=== PATIENT | male | born 1945 | race Caucasian/White ===

== ENCOUNTER 2023-01-09 23:58 | Inpatient (IN) | payer MEDICARE ==
[2023-01-10 00:55] LABS: Hemoglobin 10.2 g/dL (14.0-18.0); Mean Corpuscular HGB CONC 33.2 g/dL (32.0-36.0); Mean Corpuscular Hemoglobin 29.6 pg (27.0-31.0); Mean Platelet Volume 8.9 fL (7.4-10.4); Platelet Count 152 10x3/uL (130-400); RBC Distribution Width 15.3 % (11.5-14.5); Red Blood Cell (RBC) Count 3.44 mill/uL (4.70-6.10)
[2023-01-10 01:14] LABS: ALT (SGPT) 1138 U/L (8-55); AST (SGOT) 910 U/L (5-34); Albumin 3.2 g/dL (3.4-4.8); Alkaline Phosphatase 117 U/L (40-110); Anion Gap 17 mmol/L (10-20); BUN (Urea Nitrogen) 75 mg/dL (8.4-25.7); Bilirubin, Total 1.7 mg/dL (0.2-1.2); Calc. Creatinine Clearance 0 mL/min (70-130); Calcium 8.5 mg/dL (7.8-10.44); Carbon Dioxide 23 mmol/L (23-31); Chloride 100 mmol/L (98-107); Estimated GFR 16; Globulin 3.2 g/dL (2.4-3.5); Potassium 3.5 mmol/L (3.5-5.1); Protein, Total 6.4 g/dL (5.8-8.1); Sodium 136 mmol/L (136-145)
[2023-01-10 01:19] LABS: Glucose 53 mg/dL (83-110)
[2023-01-10 01:20] LABS: Acetaminophen Less than 10.0 mcg/mL (10.0-30.0); Alcohol Less than 10 mg/dL (Less than 10); CK (CPK) 186 U/L (30-200); Magnesium 2.6 mg/dL (1.6-2.6); Salicylate Less than 8.0 mg/dL (15.0-30.0)
[2023-01-10 01:22] LABS: Band 1 % (5-11); Eosinophils 1 % (0-10); Lymphocytes 20 % (21-51); MDiff Complete? YES; Monocytes 15 % (0-10); Neutrophil 63 % (42-75)
[2023-01-10] MEDS ORDERED: Aspirin 300 MG Suppository ONE (01:23)
[2023-01-10 01:39] LABS: CKMB 4.1 ng/mL (0-6.6)
[2023-01-10] MEDS ORDERED: Vancomycin 1 GM/200 ML (FROZEN) BAG ONE (01:42)
[2023-01-10] MEDS ORDERED: Piperacillin/Tazobactam 3.375 GM VIAL ONE (01:42)
[2023-01-10] MEDS ORDERED: Aspirin 300 MG Suppository PR SCH (02:24)
[2023-01-10] MEDS ORDERED: Ondansetron ODT 4 MG TAB PO PRN (02:28)
[2023-01-10] MEDS ORDERED: HumaLOG 300 UNITS/3 ML VIAL SC PRN ×2 (02:28)
[2023-01-10] MEDS ORDERED: Acetaminophen 325 MG TAB PO PRN (02:28)
[2023-01-10] MEDS ORDERED: Dextrose 50% Abboject 50 ML SYRINGE SLOW IVP PRN (02:28)
[2023-01-10] MEDS ORDERED: Dextrose 5% in Water 1,000 ML IV PRN (02:28)
[2023-01-10] MEDS ORDERED: Ondansetron PF 4 MG/2 ML Vial IVP PRN (02:28)
[2023-01-10] MEDS ORDERED: Acetaminophen 650 MG Suppository PR PRN (02:28)
[2023-01-10] MEDS ORDERED: Heparin 10,000 UNITS/ 10 ML VIAL SLOW IVP SCH (02:30)
[2023-01-10] MEDS ORDERED: Heparin 25,000 units/D5W 500 ML IVPB SCH (02:30)
[2023-01-10 02:37] LABS: HBCM Index 0.07 S/CO (0-0.79); HBSAg Index 0.24 S/CO (0-0.99); Hep A IgM AB Non-Reactive (NonReactive); Hep A IgM S/CO 0.15 S/CO (0-0.79); Hep B Surf Ag Non-Reactive S/CO (NonReactive); Hep C IgG Ab Non-Reactive (NonReactive); Hep C Index 0.08 S/CO (0-0.79); Hepatitis B Core IgM Abs Non-Reactive (NonReactive); Thyroid Stimulating Hormone 2.1639 uIU/mL (0.35-4.94)
[2023-01-10] MEDS ORDERED: Furosemide 40 MG/4 ML VIAL ONE (03:35)
[2023-01-10 04:16] LABS: #Monocytes 0.8 thou/uL (0.11-0.59); #Neutrophils 3.6 thou/uL (1.40-6.50); %Basophils 0.5 % (0.0-1.0); %Eosinophils 0.4 % (0.0-10.0); %Lymphocytes 17.6 % (21.0-51.0); %Monocytes 14.5 % (0.0-10.0); %Neutrophils 67.1 % (42.0-75.0); Hemoglobin 10.4 g/dL (14.0-18.0); Mean Corpuscular HGB CONC 31.9 g/dL (32.0-36.0); Mean Corpuscular Hemoglobin 28.3 pg (27.0-31.0); Mean Corpuscular Volume 88.6 fl (78.0-98.0); Mean Platelet Volume 8.6 fL (7.4-10.4); Platelet Count 148 10x3/uL (130-400); RBC Distribution Width 15.2 % (11.5-14.5); Red Blood Cell (RBC) Count 3.68 mill/uL (4.70-6.10); White Blood Cell (WBC) Count 5.4 10x3/uL (4.8-10.8)
[2023-01-10] MEDS ORDERED: Heparin 25,000 units/D5W 500 ML ONE (04:27)
[2023-01-10] MEDS ORDERED: Morphine 4 MG/ML VIAL SLOW IVP PRN (04:31)
[2023-01-10 04:38] LABS: Bacteria/HPF 1+ HPF (None Seen); Bilirubin Negative (Negative); Blood, Urine Negative (Negative); Clarity Clear (Clear); Glucose, Urine (Dipstick) 300 mg/dL (Negative); Ketone, Urine Negative (Negative); Leukocyte Negative Leu/uL (Negative); Nitrite Negative (Negative); Protein, Urine (Dipstick) 50 mg/dL (Neg-Trace); RBC/HPF 0-3 HPF (0-3); Specific Gravity, Urine 1.016 (1.002-1.036); Squamous Epithelial None Seen HPF (0-3); Urobilinogen Normal mg/dL (Less than 2); WBC/HPF 0-3 HPF (0-3)
[2023-01-10 04:43] LABS: Anion Gap 16 mmol/L (10-20); BUN (Urea Nitrogen) 75 mg/dL (8.4-25.7); Calc. Creatinine Clearance 0 mL/min (70-130); Calcium 8.5 mg/dL (7.8-10.44); Carbon Dioxide 25 mmol/L (23-31); Chloride 98 mmol/L (98-107); Estimated GFR 16; Glucose 103 mg/dL (83-110); Magnesium 2.6 mg/dL (1.6-2.6); Potassium 3.6 mmol/L (3.5-5.1); Sodium 135 mmol/L (136-145)
[2023-01-10] MEDS ORDERED: Morphine 4 MG/ML VIAL ONE (04:49)
[2023-01-10 04:54] LABS: Critical Call Chem Troponin I RESULT DECREASING
[2023-01-10 05:11] VITALS: BMI 30.1
[2023-01-10 05:56] LABS: SARS-CoV-2 NAA Rapid Test Not Detected (NotDetected)
[2023-01-10] MEDS: Aspirin 81 mg Enteric Coated Tablet PO SCH (07:20)
[2023-01-10] MEDS: Furosemide 40 MG/4 ML VIAL SLOW IVP SCH ×2 (07:36→17:56)
[2023-01-10 09:32] LABS: Amphetamine Not Detected (NotDetected); Barbiturates Screen Not Detected (NotDetected); Benzodiazepine Screen Not Detected (NotDetected); Cocaine Metabolite Screen Not Detected (NotDetected); Methadone Not Detected (NotDetected); Methamphetamine Not Detected (NotDetected); Opiate Screen Not Detected (NotDetected); Oxycodone Screen Not Detected (NotDetected); Phencyclidine (PCP) Not Detected (NotDetected); THC/Cannabinoid Screen Not Detected (NotDetected); Tricyclic Screen Not Detected (NotDetected)
[2023-01-10 09:46] LABS: PTT Greater than 250.0 sec (22.9-36.1)
[2023-01-10 10:17] LABS: INR-International Normal Ratio 2.2; Prothrombin Time 25.3 sec (12.0-14.7)
[2023-01-10 10:26] LABS: ALT (SGPT) 1005 U/L (8-55); AST (SGOT) 720 U/L (5-34); Albumin 3.4 g/dL (3.4-4.8); Alkaline Phosphatase 115 U/L (40-110); Bilirubin, Direct 1.2 mg/dL (0.1-0.3); Protein, Total 6.5 g/dL (5.8-8.1)
[2023-01-10] MEDS ORDERED: Lorazepam 2 MG/ML VIAL SLOW IVP SCH (10:30)
[2023-01-10] MEDS: Piperacillin/Tazobactam 3.375 GM in Sodium Chloride 0.9% 100 ML IVPB SCH (15:50)
[2023-01-10] MEDS ORDERED: Albumin 25% 25 GM/100 ML BOT IVPB SCH (16:00)
[2023-01-10] MEDS: rOPINIRole HCl 0.5 MG TAB PO SCH (20:20)
[2023-01-10] MEDS ORDERED: Non-Formulary Item 1 EACH (Atorvastatin Calcium [Atorvastatin Calcium] 80 MG Tablet) PO SCH (21:00)
[2023-01-10] MEDS: Melatonin 3 MG TAB PO PRN (22:38)
[2023-01-11] MEDS: Piperacillin/Tazobactam 3.375 GM in Sodium Chloride 0.9% 100 ML IVPB SCH ×2 (01:59→14:55)
[2023-01-11 06:14] LABS: #Eosinphils 0.2 thou/uL (0.0-0.7); #Lymphocytes 1.1 thou/uL (1.20-3.40); #Monocytes 0.7 thou/uL (0.11-0.59); #Neutrophils 3.9 thou/uL (1.40-6.50); %Basophils 0.6 % (0.0-1.0); %Eosinophils 3.9 % (0.0-10.0); %Lymphocytes 18.7 % (21.0-51.0); %Neutrophils 64.8 % (42.0-75.0); Hemoglobin 10.3 g/dL (14.0-18.0); Mean Corpuscular HGB CONC 32.1 g/dL (32.0-36.0); Mean Corpuscular Hemoglobin 28.9 pg (27.0-31.0); Mean Platelet Volume 8.6 fL (7.4-10.4); Platelet Count 184 10x3/uL (130-400); RBC Distribution Width 15.2 % (11.5-14.5); Red Blood Cell (RBC) Count 3.56 mill/uL (4.70-6.10)
[2023-01-11 06:32] LABS: INR-International Normal Ratio 1.7; Prothrombin Time 20.5 sec (12.0-14.7)
[2023-01-11 06:34] LABS: PTT 93.4 sec (22.9-36.1)
[2023-01-11 06:35] LABS: ALT (SGPT) 788 U/L (8-55); AST (SGOT) 422 U/L (5-34); Albumin 3.6 g/dL (3.4-4.8); Alkaline Phosphatase 102 U/L (40-110); Anion Gap 19 mmol/L (10-20); BUN (Urea Nitrogen) 64 mg/dL (8.4-25.7); Bilirubin, Total 2.5 mg/dL (0.2-1.2); CK (CPK) 152 U/L (30-200); Calc. Creatinine Clearance 22 mL/min (70-130); Calcium 8.9 mg/dL (7.8-10.44); Carbon Dioxide 24 mmol/L (23-31); Chloride 97 mmol/L (98-107); Estimated GFR 17; Globulin 3.2 g/dL (2.4-3.5); Glucose 161 mg/dL (83-110); Magnesium 2.4 mg/dL (1.6-2.6); Potassium 3.8 mmol/L (3.5-5.1); Protein, Total 6.8 g/dL (5.8-8.1); Sodium 136 mmol/L (136-145)
[2023-01-11 07:03] LABS: Creatinine, Urine 58.67 mg/dL (63-166); Protein, Urine Random Quant 38 mg/dL (1-14); Sodium, Urine Less than 20 mmol/L (Not Available); Urea Nitrogen, Random Urine 544 mg/dl
[2023-01-11] MEDS: Aspirin 81 mg Enteric Coated Tablet PO SCH (08:33)
[2023-01-11] MEDS ORDERED: Finasteride 5 MG TAB PO SCH (09:00)
[2023-01-11] MEDS ORDERED: Tamsulosin HCl 0.4 MG CAP PO SCH (09:00)
[2023-01-11] MEDS ORDERED: Furosemide 40 MG/4 ML VIAL SLOW IVP SCH ×4 (15:00→22:00)
[2023-01-11] MEDS: Metoprolol Tartrate 25 MG TAB PO SCH (20:40)
[2023-01-11] MEDS: rOPINIRole HCl 0.5 MG TAB PO SCH (20:40)
[2023-01-11] MEDS: Melatonin 3 MG TAB PO PRN (20:42)
[2023-01-11] MEDS: Furosemide 40 MG/4 ML VIAL SLOW IVP SCH (22:13)
[2023-01-12] MEDS: Piperacillin/Tazobactam 3.375 GM in Sodium Chloride 0.9% 100 ML IVPB SCH ×2 (02:45→14:00)
[2023-01-12] MEDS: Furosemide 40 MG/4 ML VIAL SLOW IVP SCH ×2 (05:02→14:00)
[2023-01-12 05:29] LABS: INR-International Normal Ratio 1.6
[2023-01-12 05:30] LABS: PTT 39.9 sec (22.9-36.1)
[2023-01-12 05:32] LABS: Hemoglobin 10.4 g/dL (14.0-18.0); Mean Corpuscular Hemoglobin 30.3 pg (27.0-31.0); Mean Corpuscular Volume 89.1 fl (78.0-98.0); Mean Platelet Volume 8.3 fL (7.4-10.4); Platelet Count 180 10x3/uL (130-400); RBC Distribution Width 15.5 % (11.5-14.5); Red Blood Cell (RBC) Count 3.44 mill/uL (4.70-6.10); White Blood Cell (WBC) Count 6.1 10x3/uL (4.8-10.8)
[2023-01-12 05:44] LABS: ALT (SGPT) 570 U/L (8-55); AST (SGOT) 220 U/L (5-34); Albumin 3.7 g/dL (3.4-4.8); Alkaline Phosphatase 92 U/L (40-110); Anion Gap 19 mmol/L (10-20); BUN (Urea Nitrogen) 60 mg/dL (8.4-25.7); Bilirubin, Total 2.4 mg/dL (0.2-1.2); Calc. Creatinine Clearance 24 mL/min (70-130); Calcium 8.9 mg/dL (7.8-10.44); Carbon Dioxide 26 mmol/L (23-31); Chloride 98 mmol/L (98-107); Estimated GFR 19; Globulin 3.2 g/dL (2.4-3.5); Glucose 157 mg/dL (83-110); Magnesium 2.2 mg/dL (1.6-2.6); Potassium 3.6 mmol/L (3.5-5.1); Protein, Total 6.9 g/dL (5.8-8.1); Sodium 139 mmol/L (136-145)
[2023-01-12 05:58] LABS: Eosinophils 3 % (0-10); Lymphocytes 20 % (21-51); MDiff Complete? YES; Monocytes 11 % (0-10); Neutrophil 66 % (42-75)
[2023-01-12] MEDS ORDERED: Empagliflozin 25 MG TAB PO SCH ×2 (09:00)
[2023-01-12] MEDS: Metoprolol Tartrate 25 MG TAB PO SCH (09:19)
[2023-01-12] MEDS: Aspirin 81 mg Enteric Coated Tablet PO SCH (09:19)
[2023-01-12 12:03] VITALS: BP 120/75; TEMP 98.4
== END 2023-01-12 16:21 | disposition home or self-care (01) | DRG 280 ==
LOC: ERS 23:58 → ERHOLD 01-10 02:10 → IMCU/EMU 01-10 08:20 → 2NO 01-11 17:11
PROVIDERS: ADMIT Student in an Organized Health Care Education/Training Program; ATTEND Family Medicine
DX: I13.0 Hypertensive heart and chronic kidney disease with heart failure and stage 1 through stage 4 chronic kidney disease, or unspecified chronic kidney disease (principal); G93.41 Metabolic encephalopathy; I21.A1 Myocardial infarction type 2; J96.01 Acute respiratory failure with hypoxia; K72.00 Acute and subacute hepatic failure without coma; I50.43 Acute on chronic combined systolic (congestive) and diastolic (congestive) heart failure; N17.9 Acute kidney failure, unspecified; I25.10 Atherosclerotic heart disease of native coronary artery without angina pectoris; E78.5 Hyperlipidemia, unspecified; E11.649 Type 2 diabetes mellitus with hypoglycemia without coma; R68.0 Hypothermia, not associated with low environmental temperature; K80.20 Calculus of gallbladder without cholecystitis without obstruction; I71.40 Abdominal aortic aneurysm, without rupture, unspecified; D63.1 Anemia in chronic kidney disease; E11.65 Type 2 diabetes mellitus with hyperglycemia; I35.0 Nonrheumatic aortic (valve) stenosis; Z20.822 Contact with and (suspected) exposure to COVID-19; N18.30 Chronic kidney disease, stage 3 unspecified; E11.22 Type 2 diabetes mellitus with diabetic chronic kidney disease; I25.2 Old myocardial infarction; Z90.49 Acquired absence of other specified parts of digestive tract
CPT/HCPCS: 36415; 36416; 51702; 70450; 70551; 71045; 72125; 74176; 76705; 78227; 80053; 80074; 80306; 80307; 81003; 81015; 82140; 82550; 82553; 82570; 83605; 83690; 83735; 83880; 84156; 84300; 84443; 84484; 84540; 85025; 85610; 85730; 87040; 93005; 93798; 96365; 96366; 96375; 97139; A9537; J1644; J1650; J1815; J1940; J2270; J2543; J3370-JW; J3490; P9047; U0002